=== PATIENT | male | born 1995 | race Caucasian/White ===

== ENCOUNTER 2016-09-30 18:00 | Emergency (ER) | payer OTHER ==
[~2016-09-30] VITALS: Ht 157.5 cm; Wt 53.4 kg
[~2016-09-30 18:00] MED LIST: EPP3/2 IM
[2016-09-30] MEDS ORDERED: METHYLPREDNISOLONE 125 MG VIAL ONE (18:05)
[2016-09-30] MEDS ORDERED: DEXAMETHASONE SOD INJ 10 MG/ML VIAL ONE (18:06)
[2016-09-30] MEDS ORDERED: FAMOTIDINE 20MG/102 ML D5W ONE (18:07)
[2016-09-30] MEDS ORDERED: DiphenhydrAMINE HCL 50 MG/ML VIAL ONE (18:07)
[2016-09-30] MEDS ORDERED: ALBUT/IPRATROP 3MG/0.5MG NEB 3 ML VIAL ONE (18:08)
[2016-09-30 18:09] VITALS: Ht 157.5 cm; Wt 53.4 kg
[2016-09-30] MEDS ORDERED: SODIUM CHLORIDE 0.9% 1000ML 1,000 ML IV STA ×2 (18:12)
[2016-09-30] MEDS ORDERED: ACETAMINOPHEN 500 MG TAB PO STA (18:12)
[2016-09-30 18:18] VITALS: O2SAT 92
--- NOTE | 2016-09-30 18:31 | DIAGNOSTIC IMAGING REPORT ---
SINGLE VIEW CHEST CLINICAL HISTORY: Allergic reaction. FINDINGS: An AP, portable, upright chest radiograph is obtained. No prior studies are available for comparison at the time of dictation. The examination is moderately degraded by portable technique and patient rotation. The cardiomediastinal silhouette is unremarkable. A hiatal hernia is suspected. Diffuse interstitial thickening is noted. No lobar consolidation or large pleural effusion is identified. No pneumothorax is seen. The bony thorax is grossly intact. IMPRESSION: 1. There is diffuse interstitial thickening. This could represent a mild infectious/inflammatory pneumonitis or possibly a component of mild edema. Clinical correlation will be required. 2. There is no lobar consolidation or large pleural effusion. 3. A hiatal hernia is suspected. Electronically signed by: Oneal Fagan M.D. 09/30/2016 6:29 PM Dictated Date/Time: 09/30/2016 6:28 PM
[2016-09-30] MEDS ORDERED: PHEN-905 PO (18:39)
[2016-09-30 18:43] LABS: BASO % 0.1 %; BASO ABS # 0.01 K/uL (0-0.2); COMPLETE YES; EOS % 1.3 %; HEMATOCRIT 39.6 % (42-52); IG% 0.3 %; LYMPH % 19.1 %; LYMPH ABS # 2.22 K/uL (1.2-3.4); MEAN CELL VOLUME 85.3 fL (80-100); MEAN CORPUSCULAR HEMOGLOBIN 30.2 pg (25-34); MEAN CORPUSCULAR HGB CONC 35.4 g/dl (32-36); MEAN PLATELET VOLUME 10.5 fL (7.4-10.4); MONO % 7.9 %; NEUT % 71.3 %; PLATELET COUNT 169 K/uL (130-400); RED BLOOD COUNT 4.64 M/uL (4.7-6.1); WHITE BLOOD COUNT 11.61 K/uL (4.8-10.8)
[2016-09-30 18:59] LABS: ALT/SGPT 17 U/L (12-78); BLOOD UREA NITROGEN 19 mg/dl (7-18); BUN/CREATININE RATIO 22.5 (10-20); CALCIUM 8.7 mg/dl (8.5-10.1); CARBON DIOXIDE 24 mmol/L (21-32); CHLORIDE 105 mmol/L (98-107); CREATININE 0.85 mg/dl (0.60-1.40); GLUCOSE 122 mg/dl (70-99); POTASSIUM 3.4 mmol/L (3.5-5.1); SODIUM 140 mmol/L (136-145)
[2016-09-30 19:04] LABS: ALB/GLOB RATIO 0.9 (0.9-2); ALKALINE PHOSPHATASE 65 U/L (45-117); AST/SGOT 14 U/L (15-37); CKMB/CK RATIO 1.7 (0-3.0)
[2016-09-30 20:35] LABS: URINE APPEARANCE CLEAR (CLEAR); URINE BILIRUBIN NEG (NEG); URINE COLOR YELLOW; URINE NITRITE NEG (NEG); URINE PH 6.5 (4.5-7.5); UROBILINOGEN NEG (NEG)
[2016-09-30 20:37] LABS: MANUAL MICROSCOPIC REQUIRED? NO; REVIEW REQ? NO
[2016-09-30] MEDS ORDERED: EPINEPHRINE ADULT AUTO-INJECT 0.3 MG SYR IM STA (21:21)
[2016-09-30] MEDS ORDERED: PRLUDL5 PO (21:28)
[2016-09-30] MEDS ORDERED: ALBUTEROL HFA 8 GM INHALER INH ONE (21:30)
[2016-09-30 21:39] LABS: LYME DISEASE AB IGG POS (NEG)
[2016-09-30 21:40] LABS: LYME DISEASE AB IGM EQUIVOCAL (NEG)
[2016-09-30 21:43] VITALS: BP 128/88; PULSE 92; TEMP 37.3; O2SAT 95
--- NOTE | 2016-09-30 22:22 | EMERGENCY ROOM VISIT NOTE ---
History Report prepared by Rachana: Adithya Bonds Under the Supervision of: Dr. Jimy Diaz M.D. First contact with patient: 18:07 Chief Complaint: ALLERGIC REACTION Stated Complaint: SOB, ALLERGIC REACTION, GAVE EPI PEN History of Present Illness The patient is a 20 year old male who presents to the Emergency Room with complaints of a sudden allergic reaction that started around 2 hours ago. Per the patient, he was okay this morning. Per the nursing staff, the patient currently has a fever. The patient's parents say the patient broke out into hives from head to toe, and was then given an epi pen. After the epi pen, the patient's hives started going away. The patient did not notice the hives, and says they were not itchy. After the hives broke out, the patient started getting very short of breath and having a bad cough. Per the patient's parents, the patient never gets this severe of breathing trouble after an allergic reaction. The patient did not eat anything with peanuts or nuts. He does have a history of a tracheotomy and a feeding tube. Per the patient's parents, the patient started having cold symptoms 2 days ago, which included a cough. Pt denies LOC, headache, chills, diaphoresis, visual changes, neck pain, chest pain , nausea, vomiting, abdominal pain, back pain, melena, hematochezia, urinary symptoms, numbness, weakness, lymphadenopathy, or other complaints. Source of History: patient, parent Onset: Around 2 hours ago Position: other (global - allergic reaction) Timing: other (sudden) Associated Symptoms: + SOB, + cough, + fevers, + rash Note: Associated symptoms: May have started getting a cold 2 days ago. Review of Systems See HPI for pertinent positives and negatives. A total of ten systems were reviewed and were otherwise negative. Past Medical & Surgical Medical Problems: (1) Premature Surgical Problems: (1) History of hernia surgery Family History Drug abuse of mother Social History Smoking Status: Never Smoker Alcohol Use: none Marital Status: single Housing Status: lives with family Occupation Status: student Current/Historical Medications Scheduled Prednisolone (Prelone 15MG/5ML), 10 ML PO DAILY Scheduled PRN Epinephrine (Epipen), 0.3 MG IM UD PRN for ALLERGIC REACTION Wxmkjplnghjjy-Vzsmibizmw-Gtcch (Nyquil Severe Cold/Flu 5-6.25-10-325 mg/15Ml), 15 ML PO DIRECTED PRN for Cough Allergies Coded Allergies: Peanut (Verified Allergy, Severe, THROAT SWELLS, HIVES, 09/30/16) Nut Tree (Unverified Allergy, Unknown, THROAT CLOSING, 09/30/16) Physical Exam Vital Signs Date Time Temp Pulse Resp B/P Pulse Ox O2 Delivery O2 Flow Rate FiO2 09/30/16 21:43 37.3 92 27 128/88 95 09/30/16 21:41 92 27 128/88 95 Room Air 09/30/16 21:18 37.3 09/30/16 21:10 96 27 95 09/30/16 20:40 105 27 94 09/30/16 20:10 115 29 94 09/30/16 20:05 110 24 131/89 94 09/30/16 19:35 120 22 94 09/30/16 19:05 120 24 95 09/30/16 18:52 120 09/30/16 18:35 118 21 100 09/30/16 18:30 125 22 100 09/30/16 18:18 92 Nasal Cannula 3.0 96 09/30/16 18:15 144 09/30/16 18:12 Nasal Cannula 3.0 96 09/30/16 18:09 39.5 135 35 135/91 92 Room Air 09/30/16 18:08 135/91 Physical Exam GENERAL: Awake, alert, dyspneic-appearing, in no distress HENT: Normocephalic, atraumatic. Oropharynx unremarkable. EYES: Normal conjunctiva. Sclera non-icteric. NECK: Supple. No nuchal rigidity. FROM. No JVD. RESPIRATORY: Few scattered rhonchi. Wet sounding cough. CARDIAC: Tachycardic rate, normal rhythm. Extremities warm and well perfused. Pulses equal. ABDOMEN: Soft, non-distended. No tenderness to palpation. No rebound or guarding. No masses. RECTAL: Deferred. MUSCULOSKELETAL: Chest examination reveals no tenderness. The back is symmetrical on inspection without obvious abnormality. There is no CVA tenderness to palpation. No joint edema. LOWER EXTREMITIES: Calves are equal size bilaterally and non-tender. No edema. No discoloration. NEURO: Normal sensorium. No sensory or motor deficits noted. SKIN: No rash or jaundice noted. Medical Decision & Procedures ER Provider Diagnostic Interpretation: X-ray: Per my interpretation, radiologist review. SINGLE VIEW CHEST CLINICAL HISTORY: Allergic reaction. FINDINGS: An AP, portable, upright chest radiograph is obtained. No prior studies are available for comparison at the time of dictation. The examination is moderately degraded by portable technique and patient rotation. The cardiomediastinal silhouette is unremarkable. A hiatal hernia is suspected. Diffuse interstitial thickening is noted. No lobar consolidation or large pleural effusion is identified. No pneumothorax is seen. The bony thorax is grossly intact. IMPRESSION: 1. There is diffuse interstitial thickening. This could represent a mild infectious/inflammatory pneumonitis or possibly a component of mild edema. Clinical correlation will be required. 2. There is no lobar consolidation or large pleural effusion. 3. A hiatal hernia is suspected. Electronically signed by: Oneal Fagan M.D. 09/30/2016 6:29 PM Dictated Date/Time: 09/30/2016 6:28 PM Laboratory Results 09/30/16 18:30 Red Blood Count 4.64, Mean Corpuscular Volume 85.3, Mean Corpuscular Hemoglobin 30.2, Mean Corpuscular Hemoglobin Concent 35.4, Mean Platelet Volume 10.5, Neutrophils (%) (Auto) 71.3, Lymphocytes (%) (Auto) 19.1, Monocytes (%) (Auto) 7.9, Eosinophils (%) (Auto) 1.3, Basophils (%) (Auto) 0.1, Neutrophils # (Auto) 8.28, Lymphocytes # (Auto) 2.22, Monocytes # (Auto) 0.92, Eosinophils # (Auto) 0.15, Basophils # (Auto) 0.01 09/30/16 18:30 Test 09/30/16 16:30 09/30/16 18:30 09/30/16 19:26 Influenza Type A Antigen Neg for Influ A (NEG) Influenza Type B Antigen Neg for Influ B (NEG) White Blood Count 11.61 K/uL (4.8-10.8) Red Blood Count 4.64 M/uL (4.7-6.1) Hemoglobin 14.0 g/dL (14.0-18.0) Hematocrit 39.6 % (42-52) Mean Corpuscular Volume 85.3 fL (80-100) Mean Corpuscular Hemoglobin 30.2 pg (25-34) Mean Corpuscular Hemoglobin Concent 35.4 g/dl (32-36) Platelet Count 169 K/uL (130-400) Mean Platelet Volume 10.5 fL (7.4-10.4) Neutrophils (%) (Auto) 71.3 % Lymphocytes (%) (Auto) 19.1 % Monocytes (%) (Auto) 7.9 % Eosinophils (%) (Auto) 1.3 % Basophils (%) (Auto) 0.1 % Neutrophils # (Auto) 8.28 K/uL (1.4-6.5) Lymphocytes # (Auto) 2.22 K/uL (1.2-3.4) Monocytes # (Auto) 0.92 K/uL (0.11-0.59) Eosinophils # (Auto) 0.15 K/uL (0-0.5) Basophils # (Auto) 0.01 K/uL (0-0.2) RDW Standard Deviation 44.2 fL (36.4-46.3) RDW Coefficient of Variation 14.1 % (11.5-14.5) Immature Granulocyte % (Auto) 0.3 % Immature Granulocyte # (Auto) 0.03 K/uL (0.00-0.02) Anion Gap 11.0 mmol/L (3-11) Est Creatinine Clear Calc Drug Dose 105.6 ml/min Estimated GFR () 146.4 Estimated GFR (Non- 126.3 BUN/Creatinine Ratio 22.5 (10-20) Calcium Level 8.7 mg/dl (8.5-10.1) Total Bilirubin 0.9 mg/dl (0.2-1) Aspartate Amino Transf (AST/SGOT) 14 U/L (15-37) Alanine Aminotransferase (ALT/SGPT) 17 U/L (12-78) Alkaline Phosphatase 65 U/L (45-117) Total Creatine Kinase 59 U/L (39-308) Creatine Kinase MB 1.0 ng/ml (0.5-3.6) Creatine Kinase MB Ratio 1.7 (0-3.0) Troponin I < 0.015 ng/ml (0-0.045) Total Protein 7.4 gm/dl (6.4-8.2) Albumin 3.6 gm/dl (3.4-5.0) Globulin 3.8 gm/dl (2.5-4.0) Albumin/Globulin Ratio 0.9 (0.9-2) Lyme Disease IgG Antibody POS (NEG) Urine Color YELLOW Urine Appearance CLEAR (CLEAR) Urine pH 6.5 (4.5-7.5) Urine Specific [place] 1.020 (1.000-1.030) Urine Protein TRACE (NEG) Urine Glucose (UA) TRACE (NEG) Urine Ketones NEG (NEG) Urine Occult Blood NEG (NEG) Urine Nitrite NEG (NEG) Urine Bilirubin NEG (NEG) Urine Urobilinogen NEG (NEG) Urine Leukocyte Esterase NEG (NEG) Urine WBC (Auto) 1-5 /hpf (0-5) Urine RBC (Auto) 0-4 /hpf (0-4) Urine Hyaline Casts (Auto) 0 /lpf (0-5) Urine Epithelial Cells (Auto) 5-10 /lpf (0-5) Urine Bacteria (Auto) NEG (NEG) Laboratory results reviewed by me Medications Administered Medications (Trade) Dose Ordered Sig/Edna Route Start Time Stop Time Status Last Admin Dose Admin Dexamethasone Sodium Phosphate (Decadron Inj) 10 mg STK-MED ONCE .ROUTE 09/30/16 18:06 09/30/16 18:10 DC 09/30/16 18:23 10 MG Diphenhydramine HCl (Benadryl Inj) 50 mg STK-MED ONCE .ROUTE 09/30/16 18:07 09/30/16 18:10 DC 09/30/16 18:23 50 MG Famotidine (Pepcid 20mg/100 ml) 20 mg STK-MED ONCE .ROUTE 09/30/16 18:07 09/30/16 18:10 DC 09/30/16 18:22 20 MG Albuterol/ Ipratropium 3 ml 3 ml STK-MED ONCE .ROUTE 09/30/16 18:08 09/30/16 18:12 DC 09/30/16 18:14 3 ML Sodium Chloride 1,000 ml @ 999 mls/hr Q1H1M STAT IV 09/30/16 18:12 09/30/16 19:12 DC 09/30/16 18:22 999 MLS/HR Sodium Chloride (Nss 1000ml) 1,000 ml @ 125 mls/hr Q8H STAT IV 09/30/16 18:12 09/30/16 22:12 DC 09/30/16 18:22 125 MLS/HR Acetaminophen (Tylenol Tab) 1,000 mg NOW STAT PO 09/30/16 18:12 09/30/16 18:15 DC 09/30/16 18:23 1,000 MG Epinephrine (Epipen) 0.3 mg NOW STAT IM 09/30/16 21:21 09/30/16 21:22 DC 09/30/16 21:34 0.3 MG Albuterol (Ventolin Hfa Inhaler) 2 puffs NOW ONCE INH 09/30/16 21:30 09/30/16 21:31 DC 09/30/16 21:34 2 PUFFS ECG Indication: other (allergic reaction) Rate (beats per minute): 132 Rhythm: sinus tachycardia Findings: no acute ischemic change, no ectopy ED Course 1809: The patient was evaluated in room A9B. A complete history and physical exam was performed. 1811: Ordered Tylenol Tab 1000 mg PO, NSS 1000 ml @ 125 mls/hr IV, NSS 1000 ml @ 999 mls/hr IV. 1940: I reevaluated the patient and he feels much better and feels normal now. 2120: I reevaluated the patient he feels completely better. Discussed results and discharge instructions: He verbalized understanding and agreement. The patient is ready for discharge. 2121: Ordered Epipen 0.3 mg IM. Medical Decision Prior records/ancillary studies reviewed. Triage Nursing notes reviewed and agree them. Additional history obtained from family. The patient's history was concerning for possible allergic reaction. Differential diagnosis: Etiologies such as allergic reaction, anaphylaxis, urticaria, Crowley-Ja syndrome, toxic epidermal necrolysis, erythema multiforme, cellulitis, as well as others were entertained. Physical examination: As above. ER treatment provided: Continuous cardiac monitoring Benadryl 50 mg IV Pepcid 20 mg IV Decadron 10 mg IV Tylenol orally DuoNeb Normal saline 1 L bolus On reassessment the patient felt significantly better. All symptoms resolved. Diagnostic interpretation by me: The labs revealed a very subtle leukocytosis. Chemistry panel reveals mild dehydration. Cardiac markers negative. Flu negative. Lyme was pending during the patient's time in the emergency department. After discharge this Lyme screen was positive however Abhi blot is pending. The patient did not have any Lyme symptoms. This was added on at the request of the family. The family will be notified and the Western blot should hopefully be done in a few days and then treatment can properly be administered. Imaging studies: Chest x-ray as above. It appears the patient had an allergic reaction. All but he also had a fever. He had no symptoms prior to the onset of his hives and allergic reaction. The chest x-ray question some pneumonitis although the patient had a cough, he always has a cough per family. After treatment for the allergic reaction the patient had no significant pulmonary symptoms. This could be coincidental. I doubt the fever had a cause in the hives and allergic symptoms. He may have a virus. Flu testing was done and was negative. The above treatment did well to reverse the symptoms. After prolonged monitoring and frequent reassessments the patient did very well and symptoms resolved. Patient family desired discharge. The patient was given an EpiPen as well as albuterol MDI with spacer prior to discharge. By the evaluation outlined above emergent etiologies such as airway compromise, Crowley-Ja syndrome, toxic epidermal necrolysis, erythema multiforme, cellulitis, pneumonia, as well as others were deemed relatively unlikely. The patient and family were informed about the findings as listed above. All questions were answered and they were pleased with the treatment. Return instructions were outlined and the patient was discharged in stable condition. Outpatient prescription management: EpiPen Ventolin MDI with spacer Prelone that the patient cannot swallow pills Referral: The patient was referred back to his primary care physician for follow-up in 2- 3 days for a recheck of the current condition. The chart was completed utilizing [employer] voice recognition software. Grammatical errors, random word insertions, pronoun errors, and incomplete sentences are an occasional side effect of this system due to software limitations, ambient noise, and hardware issues. Any formal questions or concerns about the content, text, or information contained within the body of this dictation should be directly addressed to the physician for clarification. Impression Primary Impression: Allergic reaction Additional Impression: Fever Scribe Attestation The scribe's documentation has been prepared under my direction and personally reviewed by me in its entirety. I confirm that the note above accurately reflects all work, treatment, procedures, and medical decision making performed by me. Departure Information Dispostion Home / Self-Care Prescriptions Prednisolone (PRELONE 15MG/5ML) 15 Mg/5 Ml Syrp 10 ML PO DAILY for 3 Days, #30 ML Prov: Jimy Diaz MD 09/30/16 Referrals Lakshmi Eller M.D. (PCP) Vega Hicks M.D.(REUBEN) Forms HOME CARE DOCUMENTATION FORM, IMPORTANT VISIT INFORMATION, School Instructions, Work Instructions Patient Instructions My [facility] Additional Instructions ALLERGIC REACTION INSTRUCTIONS: DO NOT drive, drink alcohol, operate machinery, or perform dangerous activities today. You were given medications in the ER that can affect your ability to safely function or operate a vehicle. Epi-Pen: Use one injection as instructed for severe allergic reactions associated with shortness of breath, difficulty breathing, or throat or tongue swelling. If you use this injection call 911 or proceed immediately to the nearest Emergency Room. Albuterol inhaler: Two puffs 4 times daily for seven days to improve breathing , then 2 puffs every 4-6 hours as needed. Prelone 15 mg per 5 mL's: 10 ml orally once daily until the prescription is finished. Benadryl elixir 12.5 mg per 5-mL's: use 10-20 mL every 6 hours as needed for rash and itching. This medication can be sedating. Tylenol suspension(Acetaminophen): 160 mg per 5-mL's. Take 30 ml's every 6 hours as needed for pain or fever. Continue current medications. Return to the emergency department for worsening of your rash, swelling of your face, lips, tongue, or throat, difficulty breathing, vomiting, or as needed. Follow-up with your primary care physician in 1-2 days for a recheck of your current condition. Problem Qualifiers
[2016-10-06 08:25] LABS: 18KDIGG BAND REACTIVE (NONREACTIVE); 23KDIGG BAND REACTIVE (NONREACTIVE); 23KDIGM BAND REACTIVE (NONREACTIVE); 28KDIGG BAND NONREACTIVE (NONREACTIVE); 30KDIGG BAND NONREACTIVE (NONREACTIVE); 39KDIGG BAND REACTIVE (NONREACTIVE); 39KDIGM BAND REACTIVE (NONREACTIVE); 41KDIGG BAND REACTIVE (NONREACTIVE); 41KDIGM BAND REACTIVE (NONREACTIVE); 45KDIGG BAND REACTIVE (NONREACTIVE); 58KDIGG BAND REACTIVE (NONREACTIVE); 66KDIGG BAND REACTIVE (NONREACTIVE); 93KDIGG BAND NONREACTIVE (NONREACTIVE)
--- NOTE | 2016-10-06 11:11 | Pharmacy Progress Note ---
ED Pharmacist Culture FollowUp Date of Service: Oct 06, 2016. Both IgG and IgM Western Blot for Lyme Disease resulted positive in this patient. He was not exhibiting s/s of Lyme Dz during his ED visit on 09/30/16 - however the test was conducted per the parent's request. Reviewed results w/ Dr Burnham. Patient is to begin Doxycycline 100mg PO BID x 21 days. I attempted to contact the patient or his mother (Stacy) at the number provided ([phone]) to explain the results of the test and explain the need for antibiotic therapy. I also wanted to know which pharmacy the Doxy should be called to. Left a message @[phone] asking for call back.
== END 2016-09-30 21:44 | disposition home or self-care (01) ==
LOC: C.EDB 18:01 → C.EDA 21:44
DX: T78.40XA Allergy, unspecified, initial encounter (principal); X58.XXXA Exposure to other specified factors, initial encounter; R50.9 Fever, unspecified